=== PATIENT | male | born 1990 | race African-American/Black ===

== ENCOUNTER 2020-08-28 08:02 | Day surgery (SDC) | payer OTHER ==
[2020-08-25 17:23] VITALS: BMI 33.0
[2020-08-28] MEDS ORDERED: MIDAZOLAM HCL 2 MG/2 ML SINGLE DOSE VIAL ONE ×3 (08:51→12:46)
[2020-08-28] MEDS ORDERED: ROPIVACAINE HCL 0.5% 30ML VIAL ONE (08:51)
[2020-08-28] MEDS ORDERED: PROPOFOL 20 ML ONE ×3 (11:45→12:45)
[2020-08-28] MEDS ORDERED: ceFAZolin SODIUM 1 GM VIAL ONE (11:48)
[2020-08-28] MEDS ORDERED: oxyCODONE HCL 5 MG TABLET PO PRN (13:12)
[2020-08-28] MEDS ORDERED: PROMETHAZINE HCL 25 MG/1 ML VIAL IVPUSH PRN (13:12)
[2020-08-28] MEDS ORDERED: ONDANSETRON 4 MG/2 ML VIAL IVPUSH PRN (13:12)
[2020-08-28] MEDS ORDERED: LACTATED RINGERS SOLUTION 1,000 ML IV SCH (13:15)
[2020-08-28 14:19] VITALS: TEMP 97.4
[2020-08-28 14:46] VITALS: BP 122/73; PULSE 78
== END 2020-08-28 16:05 | disposition home or self-care (01) ==
LOC: FASU 08:02
PROVIDERS: ATTEND Orthopaedic Surgery
PROC: 0RBJ4ZZ Excision of Right Shoulder Joint, Percutaneous Endoscopic Approach (ICD-10-PCS; principal; 2020-08-28 12:08)
DX: M75.111 Incomplete rotator cuff tear or rupture of right shoulder, not specified as traumatic (principal); M65.811 Other synovitis and tenosynovitis, right shoulder; M75.51 Bursitis of right shoulder; M75.01 Adhesive capsulitis of right shoulder
CPT/HCPCS: 88304-TC; 94760